=== PATIENT | female | born 1955 | race African-American/Black ===

== ENCOUNTER → 2017-01-15 | Outpatient (CLI) | payer OTHER ==
[~2017-01-15] MED LIST: ACETAMINOPHEN650 M1 PO; ASPIRIN81 M2 PO; COUMADIN5 MG PO; CYANOCOBALAM1000 MCG PO; HYDRALAZINE HCL50 MG PO; HYDROCHLOROTHIA25 MG PO; ISORDIL PO; LIPITOR80 MG PO; LISINOPRIL20 MG PO; LOVENOX SUBQ; METOPROLOL TAR25 MG PO; NITROGLYGERIN0.4 MG SL; NORVASC PO
--- NOTE | ~2017-01-15 | US136 ---
[facility] A Service of [facility] RADIOLOGY TEXT RESULTS PATIENT: ANAHI POOLE LOCATION: CNIV : 59 UNIT #: [id number] AGE: [address]: Shaheen Stacy DPM SEX: F ORDER DR: [id number] [facility] [address] [place], [place] [address] [id number] O MR#: [id number] Acc #: [id number] NAME: ANAHI POOLE : 1955 SEX: F STUDY DATE/TIME: 01/15/2017 10:30 UNIT: CNIV ROOM: STUDY DESCRIPTION: U/L [facility] Art Study [facility] Bil Attending Physician: Shaheen Stacy D.P.M. Referring Physician: Shaheen Stacy D.P.M. Ordering Physician: Shaheen Stacy D.P.M. Primary Care Physician: No Primary Care Physician MEDICAL IMAGING REPORT This report is preliminary unless electronic signature is present EXAM Jkxpl-vw-zaidrbks indices. DATE OF EXAMINATION 01/15/17 HISTORY Peripheral arterial disease. Right leg pain. EXAM The right brachial pressure is 169 and the left brachial pressure is 171. The right dorsalis pedis pressure is 61, posterior tibial 27, and toe 29; right tiymm-ix-opbqhzma index of 0.36. The left dorsalis pedis pressure is 72, posterior tibial 22, and toe 50, for an xdcxa-mu-hzvzqzgq index of 0.42. Pulse volume recording tracings demonstrate significant dampening of the amplitude of the signal at the ankle level bilaterally. There is dampening of the digital signal on the left side, more significantly than the right. Doppler waveform analysis indicates a monophasic signal in the dorsalis pedis arteries bilaterally. There is absence of a pulsatile waveform in the posterior tibial arteries on both sides. IMPRESSION Severe ischemia of both legs. Bfmrw-ye-iwprypay index is 0.36 on the right and 0.42 on the left. [facility] A Service [facility] RADIOLOGY TEXT RESULTS PATIENT: ANAHI POOLE LOCATION: CNIV : 59 UNIT #: [id number] AGE: [address]: Shaheen Stacy DPM SEX: F ORDER DR: Dictated by... Romario Stokes M.D. THIS IS AN ELECTRONICALLY VERIFIED REPORT Romario Stokes M.D. at 01/18/2017 8:03 AM ARTHUR/randy TD: 01/15/2017 15:15 JOB #: [id number] MEDICAL IMAGING REPORT Page 1 of 1 COPY
== END | disposition home or self-care (01) ==
LOC: CNIV 10:19
DX: I73.9 Peripheral vascular disease, unspecified (principal); I99.8 Other disorder of circulatory system
CPT/HCPCS: 93922